=== PATIENT | female | born 1965 ===

== ENCOUNTER 2016-08-27 17:10 | Emergency (ER) | payer SELFPAY ==
[2016-08-27 17:20] VITALS: BP 122/72; PULSE 74; RESP 19; TEMP 97.5; O2SAT 99
--- NOTE | 2016-08-27 17:36 | ED PDOC ---
HPI: Back Time Seen by Provider: 08/27/16 17:25 Chief Complaint (Nursing): Back Pain Chief Complaint (Provider): Back Pain History Per: Patient History/Exam Limitations: no limitations Onset/Duration Of Symptoms: Days (chronic) Additional Complaint(s): 17:29 Yesica Cavanaugh, 51 year old female presents to the ED on 08/27/16 for chronic back pain. The patient states the pain worsened today which prompted her to visit the Emergency Room. She also states that she took 2 tablets of Motrin at 6 :00 AM prior to arrival. She denies any tobacco, alcohol, or drug use and has no pertinent past medical history. PMD: Jack Bang MD Past Medical History Reviewed: Historical Data, Nursing Documentation, Vital Signs Vital Signs: Last Vital Signs Temp 97.5 F L 08/27/16 17:17 Pulse 74 08/27/16 17:17 Resp 19 08/27/16 17:17 BP 122/72 08/27/16 17:17 Pulse Ox 99 08/27/16 17:17 - Medical History PMH: Back Problems, Gastritis - Surgical History Surgical History: (x 1) - Family History Family History: States: Unknown Family Hx - Social History Current smoker - smoking cessation education provided: No Ex-Smoker (has not smoked in the last 12 months): No Alcohol: None Drugs: Denies - Home Medications Home Medications: Ambulatory Orders Medication Instructions Recorded Oxycodone HCl/Acetaminophen 1 tab PO Q6 #10 tab 12/12/14 [Percocet 325 mg-5 mg] Cyclobenzaprine [Cyclobenzaprine 10 mg PO TID PRN #20 tab 01/26/16 HCl] Naproxen [Naprosyn] 500 mg PO BID #20 tab 01/26/16 oxyCODONE/Acetaminophen [Percocet 1 ea PO Q6H PRN #15 tab 08/27/16 5/325 mg Tab] - Allergies Allergies/Adverse Reactions: Allergies Allergy/AdvReac Type Severity Reaction Status Date / Time Penicillins Allergy RASH Verified 01/26/16 16:09 Review of Systems Musculoskeletal: Positive for: Back Pain Physical Exam - Reviewed Nursing Documentation Reviewed: Yes Vital Signs Reviewed: Yes - Physical Exam Appears: Positive for: Non-toxic, No Acute Distress Head Exam: Positive for: ATRAUMATIC, NORMOCEPHALIC Back: Positive for: Other (midline tenderness; positive right leg raise at 20 degrees ) Neurologic/Psych: Positive for: Alert, Oriented (x3) - ECG O2 Sat by Pulse Oximetry: 99 (RA) Pulse Ox Interpretation: Normal Medical Decision Making Medical Decision Making: Initial Impression: Patient presents with sciatica Initial Plan: * Valium 5 mg PO Once Stat * Toradol 15 mg IM Stat * Reevaluation Pt reports pain 7/10 after medications. Percocet ordered. Scribe Attestation: Documented by Natalie Kim, acting as a scribe for Charlette Snow PA-C. Provider Scribe Attestation: All medical record entries made by the Scribe were at my direction and personally dictated by me. I have reviewed the chart and agree that the record accurately reflects my personal performance of the history, physical exam, medical decision making, and the department course for this patient. I have also personally directed, reviewed, and agree with the discharge instructions and disposition. Disposition - Clinical Impression Clinical Impression: Sciatica - Patient ED Disposition Is Patient to be Admitted: No Counseled Patient/Family Regarding: Diagnosis, Need For Followup, Rx Given - Disposition Referrals: [facility] [Outside] Disposition: Routine/Home Disposition Time: 20:22 Condition: GOOD Prescriptions: oxyCODONE/Acetaminophen [Percocet 5/325 mg Tab] 1 ea PO Q6H PRN #15 tab PRN Reason: Pain, Severe (8-10) Instructions: Sciatica (ED) Print Language: TAJIK
[2016-08-27] MEDS ORDERED: Oxycodone/Acetaminophen 5/325 mg Tab PO STA (19:27)
== END 2016-08-27 20:35 | disposition home or self-care (01) ==
LOC: H.ER 17:10
DX: M54.30 Sciatica, unspecified side (principal); Z87.891 Personal history of nicotine dependence; Z88.0 Allergy status to penicillin
CPT/HCPCS: 96372; 99282; J1885